=== PATIENT | male | born 1985 | race Hispanic/Latino ===

== ENCOUNTER 2024-03-14 06:25 | Emergency (ER) | payer SELFPAY ==
--- OUTSIDE RECORDS SUMMARY | 2024-03-14 06:27 | XMS REPORT | Continuity of Care Document ---
Author Name Unknown Address [address] [place] [address] [address] [facility] Address [address] [facility] 1 [address] [place] [address] Care Team Providers Care Adjunct Psychology Faculty Member Name Role Phone Morris Lr Attending Clinician UnavailDanielle Rendon Attending Clinician Unavailable Gabrielle Singh Attending Clinician Unavailable Cesar Wahl Attending Clinician Unamary rice Physician, No Primary or Family Admitting Clinic [place] Unavailable Payers Payer Name Policy Type Policy Number Effective Date Expirati on Date Source Allergies, Adverse Reactions, Alerts Allergy Name Allergy Type Status Severity Reaction(s) Onset Date Inactive Date Treating Clinician Comments Source No Known Allergie s DA Active U 12-19 00:00: 00 [facility] No Known Allergie s DA Active U 12-19 00:00: 00 [facility] Encounters Start Date/Time End Date/Time Encounter Type Admission Type Attending Clinicians Care Facility Care Department Encounter ID Source 2020-12-19 00:50:00 Inpatient [facility] ER [id number] [facility] 2024-01-02 21:35:00 2024-01-02 22:44:00 Emergency EM Morris Lr [facility] ER [id number] [facility] 2022-09-08 15:36:00 2022-09-08 17:18:00 Emergency EM Danielle Sam [facility] ER [id number] [facility] 2021-10-27 14:50:00 2021-10-27 17:25:00 Emergency EM Gabrielle Singh [facility] ER [id number] [facility] 2021-10-17 17:46:00 2021-10-17 19:16:00 Emergency EM Cesar Wahl [facility] ER [id number] [facility] Results Test Description Test Time Test Comments Results Result Co mments Source - XR CHEST 1 [id number] 16:40:00 [facility] 1985 Sex: M Patient Name: BRIANNA STRICKLAND Unit No: [id number] EXAMS: CPT CODE: [id number] XR CHEST 1 V 59891 Reason: cough EXAM: - XR CHEST 1 V INDICATION: cough Technique: Frontal view of the chest. Location: H62 FINDINGS: Lungs appear clear. No pleural effusion seen. Cardiomediastinal silhouette appears unremarkable. Osseous structures appear unremarkable. IMPRESSION: No acute cardiopulmonary process seen. Elec tronically Signed by Mauri Stroud MD on 09/08/2022 at 1640 Reported and signed by: Mauri Stroud, [facility]: Tanner MARIE; Danielle Sam DO Technologist: RT Leesa Trscrpt Dt/ (1640)[id number] Orig Print D/T: S: 09/08/2022 (1643) Phil Campbell FSED NAME: BRIANNA STRICKLAND [facility] [address] PHYS: Danielle Goodwin DO [address] : 1985 AGE: 36 SEX: M [place], [place] [address] LOC: D.PER PHONE #: [phone] EXAM DATE: 09/08/2022 STATUS: REG ER FAX#: RAD NO: DC Dt: PAGE 1 Signed ReportLACTIC ACID 2021-10-27 16:28:00* Test Item Value Reference Range Interpretation Comme nts LACTIC ACID (test code = LACT) 0.5 MMOL/L 0.5-2.2 N COMPREHENSIVE METABOLIC [id number] 16:04:00* Test Item Value Reference Range Interpretation Comme nts SODIUM (test code = NA) 137 MMOL/L 133-145 N POTASSIUM (test code = K) 4.0 MMOL/L 3.6-5.2 N CHLORIDE (test code = CL) 99 MMOL/L 100-108 L CARBON DIOXIDE (test code = CO2) 27 MMOL/L 22-32 N GLUCOSE (test code = GLU) 119 MG/DL 65-99 H Results of this assay method may be falsely depressed orelevated if patient is taking sulfasalazine. BLOOD UREA NITROGEN (test code = BUN) 13 MG/DL 6-20 N GLOMERULAR FILTRATION RATE (test code = GFR) 71 70-162 N Reporting units: mL/min/1.73m\\S\\2 (Modified MDRD Formula) CREATININE (test code = CREAT) 1.17 MG/DL 0.60-1.00 H TOTAL PROTEIN (test code = PROT) 8.1 G/DL 6.4-8.2 N ALBUMIN (test code = ALB) 3.3 G/DL 3.4-5.0 L GLOBULIN (test code = GLOB) 4.8 G/DL 1.5-3.8 H ALBUMIN/GLOBULIN RATIO (test code = A/G) 0.7 1.1-2.2 L CALCIUM (test code = CA) 9.0 MG/DL 8.7-10.5 N BILIRUBIN TOTAL (test code = BILT) 0.7 MG/DL 0.0-1.0 N SGOT/AST (test code = AST) 17 Units/L 15-37 N Results of this assay method may be falsely depressed orelevated if patient is taking sulfasalazine. SGPT/ALT (test code = ALT) 25 Units/L 30-65 L Results of this assay method may be falsely depressed orelevated if patient is taking sulfasalazine. ALKALINE PHOSPHATASE TOTAL (test code = ALKP) 89 Units/L 50-136 N [id number] 16:04:00* Test Item Value Reference Range Interpretation Comme nts LIPASE (test code = LIP) 79 Units/L 73-393 N TROP-I HIGH [id number] 16:04:00* Test Item Value Reference Range Interpretation Comme nts TROP-I HIGH SENSITIVITY (test code = TROPIHS) 4 ng/L < 76 This is a new test. A transition from TropI to TropIHS. The normal ranges and reporting units have changed. Pleasereview results carefully. - The use of serial sampling and testing protocol is a recommended practice.- An elevated troponin level alone is often not sufficient for diagnosis of myocardial infarction.Results of this assay method may be falsely depressed orelevated if patient is taking high doses of Biotin. Coronavirus 2019 nCoV [id number] 16:04:00* Test Item Value Reference Range Interpretation Comme [facility] Coronavirus 2019 nCoV Bedside (test code = [id number]) Negative Negative ID NOW COVID-19 assay performed on the ID NOW Instrument paulino rapid molecular in vitro diagnostic test utilizing anisothermal nucleic acid amplification technology intendedfor the qualitative detection of nucleic acid from fqbSNNX-ElD-0 viral RNA in direct nasal, nasopharyngeal orthroat swabs and nasal, nasopharyngeal or throat swabseluted in viral transport media from individuals who aresuspected of COVID-19 by their healthcare provider. Negative results should be treated as presumptive and, ifinconsistent with clinical signs and symptoms or necessaryfor patient management, should be tested with differentauthorized or cleared molecular tests. Negative results donot preclude SARS-CoV-2 infection and should not be used asthe sole basis for patient management decisions. Negativeresults should be considered in the context of a patient'srecent exposures, history and presence of clinical signs andsymptoms consistent with COVID-19.Results are for the identification of SARS-CoV-2 RNA.For Use Under an Emergency Use Authorization (EUA) Only Negative results do not preclude SARS-CoV-2 infection andshould not be used as the sole basis for patient managementdecisions. Negative results must be combined with clinicalobservations, patient history, and epidemiologicalinformation . CBC W/AUTO [id number] 16:03:00* Test Item Value Reference Range Interpretation Comme nts WHITE BLOOD CELL (test code = WBC) 15.01 x10 3/uL 4.80-10.80 H Results called to and read back by PERRY BRAVO, [id number], 10/27/21, GlennaLAB.MCM. RED BLOOD CELL (test code = RBC) 5.19 x10 6/uL 4.7-6.1 N HEMOGLOBIN (test code = HGB) 16.4 G/DL 14.0-17.0 N HEMATOCRIT (test code = HCT) 47.8 % 42-52 N MEAN CELL VOLUME (test code = MCV) 92.1 FL 80-94 N MEAN CELL HGB (test code = MCH) 31.6 PG 27-31 H MEAN CELL HGB CONCENTRATION (test code = MCHC) 34.3 G/DL 33-37 N RED CELL DISTRIBUTION WIDTH (test code = RDW) 12.5 % 11.5-14.5 N PLATELET COUNT (test code = PLT) 289 x10 3/uL 150-450 N MEAN PLATELET VOLUME (test code = MPV) 10.5 FL 7.4-10.4 H NEUTROPHIL % (test code = NT%) 78.5 % 42-86 N LYMPHOCYTE % (test code = LY%) 9.7 % 24-44 L MONOCYTE % (test code = MO%) 11.2 % 0.0-4.0 H EOSINOPHIL % (test code = EO%) 0.5 % 0.0-2.7 N BASOPHIL % (test code = BA%) 0.1 % 0.0-0.5 N NEUTROPHIL # (test code = NT#) 11.79 x10 3/uL 1.8-7.7 H LYMPHOCYTE # (test code = LY#) 1.45 x10 3/uL 1.0-4.8 N MONOCYTE # (test code = MO#) 1.68 x10 3/uL 0.0-0.8 H EOSINOPHIL # (test code = EO#) 0.07 x10 3/uL 0.0-0.5 N BASOPHIL # (test code = BA#) 0.02 x10 3/uL 0.0-0.2 N MANUAL DIFF REQUIRED (test code = MDIFF) AUTODIFF VERIFIED TECH REVIEW Auto Differential verified by tech review of smear. - XR CHEST 1 [id number] 15:16:00 [facility] 1985 Sex: M Patient Name: BRIANNA STRICKLAND Unit No: [id number] EXAMS: CPT CODE: [id number] XR CHEST 1 V 83121 Reason: cough, short of breath - XR CHEST 1 V INDICATION:Cough and shortness of breath LOCATION: T18 The lungs are clear. The cardiomediastinal silhouette is within normal limits. The bony thorax is unremarkable. IMPRESSION: No active disease. at 1516 Reported and signed by: Skip Sandhu MD CC: Gabrielle Singh MD Technologist: RT Leesa Trscrpt Dt/ (1516)[email or web address].[email or web address] Orig Print D/T: S: 10/27/2021 (6558) Phil Campbell FSED NAME: BRIANNA STRICKLAND [address] [place] [address] PHYS: Gabrielle Austin MD [address] : 1985 AGE: 35 SEX: M [place], [place] [address] LOC: D.PER PHONE #: [phone] EXAM DATE: 10/27/2021 STATUS: REG ER FAX #: RAD NO: DC Dt: PAGE 1 Signed Report- XR CHEST 1 [id number] 18:46:00 [facility] 1985 Sex: M Patient Name: BRIANNA STRICKLAND Unit No: [id number] EXAMS: CPT CODE: [id number] XR CHEST 1 V 56244 Reason: cough Location code: H5 Chest 1 view Indication: cough. Comparison: None Findings: The heart and mediastinum are not remarkable. Costophrenic angles are clear. Lungs are clear. Bone is unremarkable for age. Impression: 1. No radiographic evidence of acute cardiopulmonary disease. at 1846 Reported and signed by: George Romero MD CC: Cesar Cortes MD Technologist: Yifan Rodgers CT Trscrpt Dt/ (1845)[email or web address] Orig Print D/T: S: 10/17/2021 (184) Phil Campbell FSED NAME: BRIANNA STRICKLAND [facility] [address] PHYS: LINDA - Cesar Wahl [address] : 1985 AGE: 35 SEX: M [place], [place] [address] LOC: D.PER PHONE #: [phone] EXAM DATE: 10/17/2021 STATUS: REG ER FAX #: RAD NO: DC Dt: PAGE 1 Signed ReportDRUG OF ABUSE SCREEN URINE 2020-12-19 02:00:00* Test Item Value Reference Range Interpretation Comments UR COCAINE (test code = COCAU) NEGATIVE NEGATIVE UR MDMA (test code = MDMAQLU) NEGATIVE NEGATIVE UR CANNABINOIDS (test code = CANU) NEGATIVE NEGATIVE UR AMPHETAMINE (test code = AMPHU) NEGATIVE NEGATIVE UR BARBITURATE QUAL (test code = BARBQLU) NEGATIVE NEGATIVE UR BENZODIAZEPINE (test code = BENZU) NEGATIVE NEGATIVE UR OPIATES QUAL (test code = OPIAQLU) POSITIVE NEGATIVE A If confirmatory testing required, contact laboratory. UR PHENCYCLIDINE (PCP) (test code = PHENCU) NEGATIVE NEGATIVE Urine Drug Abuse Screen provides preliminary results thatmay be confirmed by alternate methods (i.e., GC/MS) at [facility]. Results of screen may not be usedin criminal justice, job performance or professionalcredential review, or custody issues. Negative Guys Level ng/ml ----- Cocaine 300 Methamphetamine (Ecstacy) 500 Cannabinoids (THC) 50 Amphetamine 1000 Barbiturates 200 Benzodiazepines 200 Opiates 300 Phencyclidine (PCP) 25 Notes Date/Time Note Provider Source 2024-01-02 22:22:00 [id number] PIkMFIhf4AJJPfJfDSspku7tir+2249-53-46T70:22:00 [facility] PROVID[facility] REPORTREPORT#:[id number] REPORT STATUS: SignedDATE:01/02/24 TIME: 2221 PATIENT: BRIANNA STRICKLAND UNIT #: [id number]#: [id number] ROOM/BED:AGE: 38 SEX: M PCP PHYS: No Primary or Family PhysicianSERVICE DT: AUTHOR: Morris Lr MD * ALL edits or amendments must be made on the electronic/computer document * HPI-General Illness GeneralInitial Greet Date/Time 01/02/242144 PresentationChief Complaint Tooth pain Free Text HPI NotesFree Text HPI NotesThe patient presents with atraumatic left lower tooth pain, onset today, steadily worsening and quite severe. He has an appoint with a dentist tomorrow. No fever. He is generally in good health with no chronic medical problems. Review of Systems ROS StatementsAll systems rev neg except as marked. Past Medical History - AdultStated Complaint TOOTHACHEAllergiesCoded Allergies:No Known Allergies (12/19/20) Home MedicationsActive ScriptsPENICILLIN V-K (PEN V-K) 500 MG PO Q6H 7 Days #28 TABS Prov: 12/19/20NAPROXEN (NAPROSYN) 500 MG PO BID PRN PRN PAIN NAPROXEN (NAPROSYN) 500 MG PO BID PRN PRN PAIN #15 TABS Prov: 12/19/20BENZONATATE (TESSALON) 100 MG PO Q8H PRN PRN COUGH 5 Days #30 CAPS Prov: 10/27/21hydrOXYzine PAMOATE (VISTARIL) 25 MG PO QID PRN PRN anxiety 5 Days #20 CAPS Prov: 10/27/21ACETAMINOPHEN (TYLENOL) 500 MG PO Q6H PRN PRN fever ACETAMINOPHEN (TYLENOL) 500 MG PO Q6H PRN PRN fever #20 TABS Prov: 10/17/21IBUPROFEN (ADVIL) 400 MG PO Q6H 5 Days #20 TABS Prov: 10/17/21OSELTAMIVIR (TAMIFLU) 75 MG PO BID OSELTAMIVIR (TAMIFLU) 75 MG PO BID #10 CAPS Prov: 10/17/21 Calculated Suicide Risk (nurs) No riskAlcohol Use Alcohol useDrug Use Denies recreational drugsSmoking status for patients 13 years old or older: Never Smoker Physical Exam Vital SignsVital SignsFirst Documented: Result Date Time Pulse Ox 97 01/02 2140 B/P 159/113 01/02 2140 B/P Mean 128 01/02 2140 O2 Delivery Room air 01/02 2140 Temp 98.5 01/02 2140 Pulse 79 01/02 2140 Resp 16 01/020 Last Documented: Result Date Time Pulse Ox 97 01/02 2140 B/P 159/113 01/02 2140 B/P Mean 128 01/02 2140 O2 Delivery Room air 01/02 2140 Temp 98.5 01/02 2140 Pulse 79 01/02 2140 Resp 16 01/020 Review of Vital Signs Reviewed Free Text PE NotesFree Text PE NotesGeneral: Awake, alert, appropriate, interactive. Uncomfortable, appears to be in pain.Eyes: Conjunctiva are clear. Corneas appear normal. EOMI.ENT: Face, head, external nose, and ears are normal-appearing. The oropharynx has a left lower tooth fracture with exposed pulp. No redness or swelling. Theuvula is midline. The posterior pharyngeal elements are symmetric. Voice is normal.Neck: The neck is nontender and supple with normal range of motion.Back: The back appears normal with full range of motion.Respiratory: The respiratory effort is normal. The lungs are clear to auscultation.Cardiovascular: Heart sounds are normal. No murmur or rub. The rate is normal. The rhythm is normal. Peripheral pulses are normal and equal bilaterally. No edema is present. Capillary refill is less than 3 seconds.GI: The abdomen is soft, nondistended, without mass. There is no tenderness to palpation. No rebound or guarding. Bowel sounds are normal. The liver and spleen are nonpalpable.Musculoskeletal: Range of motion of all joints appears normal without pain or tenderness.Skin: There is no rash.Neurologic: No focal deficits are noted. Re-Evaluation MDM Free Text MDM NotesFree Text MDM NotesHe will follow-up with a dentist as scheduled. ED CourseMedication(s) OrderedMedication(s) Ordered:Central Nervous System Agents Sig/Farhan Start time Last Medication Dose Route Stop Time Status Admin Hydrocodone Bitart/ 1 TAB X1ED STA 01/02 2216 DC 01/02 Acetaminophen PO 01/02 Ketorolac 60 MG X1ED STA 01/02 2216 DC 01/02 Tromethamine IM 01/02 Patient Discharge Departure Vital Signs/ConditionVital SignsFirst Documented: Result Date Time Pulse Ox 97 01/02 2140 B/P 159/113 01/02 2140 B/P Mean 128 01/02 2140 O2 Delivery Room air 01/02 2140 Temp 98.5 01/02 2140 Pulse 79 01/02 2140 Resp 16 01/020 Last Documented: Result Date Time Pulse Ox 97 01/02 2140 B/P 159/113 01/02 2140 B/P Mean 128 01/02 2140 O2 Delivery Room air 01/020 Temp 98.5 01/02 2140 Pulse 79 01/02 2140 Resp 16 01/020 All vital signs available at the time of this entry have been reviewed. Condition Stable Clinical ImpressionClinical ImpressionPrimary Impression: Pain, dental Disposition DecisionDischarge )( Discharged to Home Yes )( Time 224 )( Date 01/02/24 Discharge/Care PlanCounseled Regarding Diagnosis, Prescriptions, Need for follow-up, When to returnto ED(Auto) PrescriptionsCurrent Visit ScriptsPENICILLIN V-K (PEN V-K) 500 MG PO TID 7 Days #21 TABS ACETAMINOPHEN/CODEINE (TYLENOL WITH CODEINE #3 300/30 MG) 1-2 TAB PO Q6H PRN PRNACUTE PAIN ACETAMINOPHEN/CODEINE (TYLENOL WITH CODEINE #3 300/30 MG) 1-2 TAB PO Q6H PRN PRN ACUTE PAIN #15 TABS Patient Instructions ED Dental PainAdditional InstructionsFollow-up with your dentist tomorrow as scheduled. at 2243RPT #:[id number] OF REPORTEDEmerchi st. vincent hospitalcy department [id number]:22:00D.[id number] ilable for patient [id number]:43:40 [facility] 2022-09-08 15:50:00 [id number] W+Mk20zowLgCE1Zid15mv0+Will/cheng t/dHDVWa/gGIwVpmukQc9OEmWmZ6288-68-30W99:50:00 [facility] PROVID[facility] REPORTREPORT#:[id number] REPORT STATUS: SignedDATE:09/08/22 TIME: 1550 PATIENT: BRIANNA STRICKLAND UNIT #: [id number]#: [id number] ROOM/BED:AGE: 36 SEX: M PCP PHYS: No Primary or Family PhysicianSERVICE AUTHOR: Tanner Schuler * ALL edits or amendments must be made on the electronic/computer document * Tanner Schuler 09/08/22 1550:HPI-URI/Cough/Cold Free Text HPI NotesFree Text HPI Ubeeq60-kmpr-ebu male who reports no chronic medical history complains of URI-like symptoms for 1 day. He complains of a cough, congestion, fever, body aches, andchills. He denies chest pain, headache, blurred vision, nausea/vomiting, changes in his bowel/bladder movements, or any other symptoms. GeneralConfirmed Patient YesInitial Greet Date/Time 09/08/22 153 PresentationChief Complaint Upper resp infection Review of Systems ROS StatementsAll systems rev neg except as marked. Focused Review of SystemsConstitutionalReports: Chills, Fever, Weakness - generalized. Ears/Nose/ThroatReports: Nasal congestion, Sore throat. RespiratoryReports: Cough, productive. Denies: Shortness of breath, Wheezing. GIDenies: Abdominal pain, Constipation, Diarrhea, Nausea, Vomiting. Past Medical History - AdultStated Complaint RUNNY NOSE COUGHAllergiesCoded Allergies:No Known Allergies (12/19/20) Home MedicationsActive ScriptsPENICILLIN V-K (PEN V-K) 500 MG PO Q6H 7 Days #28 TABS Prov: 12/19/20NAPROXEN (NAPROSYN) 500 MG PO BID PRN PRN PAIN NAPROXEN (NAPROSYN) 500 MG PO BID PRN PRN PAIN #15 TABS Prov: 12/19/20BENZONATATE (TESSALON) 100 MG PO Q8H PRN PRN COUGH 5 Days #30 CAPS Prov: 10/27/21hydrOXYzine PAMOATE (VISTARIL) 25 MG PO QID PRN PRN anxiety 5 Days #20 CAPS Prov: 10/27/21ACETAMINOPHEN (TYLENOL) 500 MG PO Q6H PRN PRN fever ACETAMINOPHEN (TYLENOL) 500 MG PO Q6H PRN PRN fever #20 TABS Prov: 10/17/21IBUPROFEN (ADVIL) 400 MG PO Q6H 5 Days #20 TABS Prov: 10/17/21OSELTAMIVIR (TAMIFLU) 75 MG PO BID OSELTAMIVIR (TAMIFLU) 75 MG PO BID #10 CAPS Prov: 10/17/21 Alcohol Use Alcohol useDrug Use Denies recreational drugs Physical Exam Vital SignsVital SignsFirst Documented: Result Date Time Pulse Ox 98 09/08 1553 B/P 133/76 09/08 155 B/P Mean 95 09/08 155 O2 Delivery Room air 09/08 1553 Temp 98.4 09/08 1553 Pulse 90 09/08 155 Resp 16 09/08 1553 Last Documented: Result Date Time Pulse Ox 98 09/08 1553 B/P 133/76 09/08 1553 B/P Mean 95 09/08 1553 O2 Delivery Room air 09/08 1553 Temp 98.4 09/08 1553 Pulse 90 09/08 1553 Resp 16 09/08 1553 Review of Vital Signs Reviewed Focused PEGeneral/Const General/Const Awake, Alert, CooperativeEars/Nose/Throat Ears/Nose/Throat Airway patent, Mucous membranes moist, Pharynx NL, Tympanic membs NL, Ext aud canal NL, Mastoid area NL, Nose exam NL, No sinus tenderness, No facial swelling, Gums/dentition NLMS Neck Neck Supple, No meningismus, Full range of motion, No adenopathy, No swelling, Non-tender, No midline vertebral tendResp/Chest Respiratory/Chest Breath sounds NL, Breath sounds = bilat, No respiratory distress, No wheezing, No retractionsCardiovascular Cardiovascular Heart rate NL, Regular rhythm, Heart sounds NL, Cap refill notdelayed, Peripheral circulation NLAbdomen/GI Abdomen/GI Soft, Non-tender, No guarding, No reboundSkin Skin Color NL, Warm, DryNeurologic Neurologic Oriented X3, Speech NL, Memory NL Interpretation Diagnostics Lab Results InterpretationResultsLaboratory Tests: 09/08 1556 Serology SARS-CoV-2 Ag (Rapid) (Negative) NEGATIVE Microbiology: Date/Time Procedure - Status Source Growth 09/08 1556 Group A Streptococcus Screen (SHERRY) - RES THROAT 09/08 1556 Throat Culture - RES THROAT 09/08 1556 Influenza Virus Type B Antigen - COMP NASOPHARG 09/08 1556 Influenza Virus Type A Antigen - COMP NASOPHARG Recent Impressions:RADIOLOGY - XR CHEST 1 V 09/08 1600 Report Impression - Status: SIGNED Entered: 09/08/2022 1643 IMPRESSION:No acute cardiopulmonary process seen.Impression By: [id number] - Mauri Stroud MD Lab Imaging StatementLaboratory radiographic studies reviewed and considered in the medical decision-making. Re-Evaluation MDM Re-Evaluation/ProgressRe-Evaluation/Progress Re-Eval Status Unchanged URI/Flu Adult MDM NoteThe patient is now resting comfortably, is alert and in no distress. The patienthas a normal mental status and is neurologically intact. The patient appears well and is able to tolerate food or fluid by mouth, and there is no significantdehydration. There is no respiratory distress and no signs of systemic toxicity.The history, exam, diagnostic testing and current condition do not demonstrate an infectious process such as meningitis, severe pneumonia, retropharyngeal abscess, epiglottitis, sepsis or other serious bacterial infection requiring further testing, treatment, consultation, or admission at this time. The vital signs have been stable. The patient's condition is stable and appropriate for discharge. The patient will pursue further outpatient evaluation with the primary care physician or other designated or consulting physician as indicated in the discharge instructions. Patient Discharge Departure Vital Signs/ConditionVital SignsFirst Documented: Result Date Time Pulse Ox 98 09/08 1553 B/P 133/76 09/08 1553 B/P Mean 95 09/08 155 O2 Delivery Room air 09/08 1553 Temp 98.4 09/08 155 Pulse 90 09/08 155 Resp 16 09/08 1553 Last Documented: Result Date Time Pulse Ox 98 09/08 1553 B/P 133/76 09/08 1553 B/P Mean 95 09/08 155 O2 Delivery Room air 09/08 155 Temp 98.4 09/08 155 Pulse 90 09/08 155 Resp 16 09/08 1553 All vital signs available at the time of this entry have been reviewed. Condition Stable Clinical ImpressionClinical ImpressionPrimary Impression: URI (upper respiratory infection) Disposition DecisionDischarge )( Discharged to Home Yes )( Time 1650 )( Date 09/08/22 Discharge/Care PlanCounseled Regarding Diagnosis, Lab results, Imaging studies, Need for follow-up,When to return to EDPatient Instructions ED URI, Viral, No Abx (Adult) Discharge NoteI have spoken with the patient and/or caregivers. I have explained the patient'scondition, diagnoses and treatment plan based on the information available to meat this time. I have answered the patient's and/or caregiver's questions and addressed any concerns. The patient and/or caregivers have as good an understanding of the patient's diagnosis, condition and treatment plan as can beexpected at this point. The vital signs have been stable. The patient's condition is stable and appropriate for discharge from the emergency department. The patient will pursue further outpatient evaluation with the primary care physician or other designated or consulting physician as outlined in the discharge instructions. The patient and/or caregivers are agreeable to this planof care and follow-up instructions have been explained in detail. The patient and/or caregivers have received these instructions in written format and have expressed an understanding of the discharge instructions. The patient and/or caregivers are aware that any significant change in condition or worsening of symptoms should prompt an immediate return to this or the closest emergency department or a call to 911. Danielle Sam 09/10/22 0343:Patient Discharge Departure Discharge/Care PlanReferralsProvider Group: PRIMARY CARE Follow-Up: As Needed Supervising Physician Note MidLv Saw Pt AloneI was available for consultation as needed at all times during the patient's visit in the emergency department. I was not asked to see this patient. at 1706 at 0344RPT #:[id number] OF REPORTEDEmerde queen medical center department [id number]:50:00D.[id number] ilable for patient [id number]:06:57 [facility] 2021-10-27 15:12:00 [id number] u[id number]:12:02920 8-0058 [place], [place] PATIENT NAME: BRIANNA STRICKLAND ADMIT DATE: 10/27/21ACCOUNT NO: [id number] ROOM NO: AGE: 35 REPORT TYPE: ELECTROCARDIOGRAM SEX: M : 85ADMITTING PHYSICIAN: ATTENDING PHYSICIAN:Gabrielle Singh MD Order:[id number] Reason : SEPSIS Test Date/Time Stamp:WedOct 27 2021 15:12:54Blood Pressure : / mmHGVent. Rate : 108 BPM Atrial Rate : 108 BPM P-R Int : 132 ms QRS Dur : 094 ms QT Int : 338 ms P-R-T Axes : 031 -70 041 degrees QTc Int : 452 ms Sinus tachycardiaIncomplete right bundle branch blockLeft anterior fascicular blockAbnormal ECG Confirmed by GABRIELLE SINGH ([id number]), social media editor BERTHA FARIAS ([id number]) on11/22/2021 12:48:09 PM Referred By: Self Referred Confirmed by:GABRIELLE SINGH at 1248 PATIENT NAME: BRIANNA STRICKLAND .[id number] AVAvailable for patient [id number]:48:51 [facility] 2021-10-27 14:59:00 [id number] [id number]-33A34:59:00 [facility] PROVIDER REPORTREPORT#:[id number] REPORT STATUS: SignedDATE:10/27/21 TIME: 1459 PATIENT: BRIANNA STRICKLAND UNIT #: [id number]#: [id number] ROOM/BED:AGE: 35 SEX: M PCP PHYS: No Primary or Family PhysicianSERVICE AUTHOR: Gabrielle Singh MD * ALL edits or amendments must be made on the electronic/computer document * HPI-General Illness Free Text HPI NotesFree Text HPI Notes HPI:35-year-old male with past medical history of asthma, anxiety here with shortness of breath chest tightness and cough for the past several days. Patient states he was recently diagnosed with influenza. Denies fever but has body aches and chills and sweatiness. No abdominal pain nausea vomiting diarrhea dysuria congestion sore throat headache. Patient has been taking NyQuil at home. No other known sick contacts. Patient's girlfriend reportedly had called EMS who evaluated him however he declined transport. Onset/Timing: Several daysContext: No known sick contactProvocation/Modifying factors: Nothing in particularQuality: TightnessRadiation: ChestSeverity: ModerateAssociated symptoms: Cough shortness of breath PMH: AsthmaPSH: DeniesSHx: Smokes tobaccoMeds: NyQuilAllergies: No known drug allergies Home medications reviewed. [facility] Greet Date/Time 10/27/21 1455 PresentationChief Complaint Cough, Shortness of breath Review of Systems ROS StatementsAll systems rev neg except as marked. Free Text ROS NotesFree Text ROS Notes ROS: Constitutional: Patient denies recent illness, fever, weaknessEyes: Patient denies problems with visionENT: Patient denies sore throat, congestionMusculoskeletal: Patient denies neck, back, extremity painPulm: cough, shortness of breathChest: chest painHeme/Lymph: Patient denies palpable lymph nodes or anemia/easy bruisingGI: Patient denies abdominal pain, nausea, vomiting, diarrheaGU: Patient denies dysuria or blood in the urineSkin: Patient denies rashNeuro: Patient denies headache, dizzinessPsych: anxiety Past Medical History - AdultStated Complaint CAN'T BREATHEAllergiesCoded Allergies:No Known Allergies (12/19/20) Home MedicationsActive ScriptsPENICILLIN V-K (PEN V-K) 500 MG PO Q6H 7 Days #28 TABS Prov: 12/19/20NAPROXEN (NAPROSYN) 500 MG PO BID PRN PRN PAIN NAPROXEN (NAPROSYN) 500 MG PO BID PRN PRN PAIN #15 TABS Prov: 12/19/20ACETAMINOPHEN (TYLENOL) 500 MG PO Q6H PRN PRN fever ACETAMINOPHEN (TYLENOL) 500 MG PO Q6H PRN PRN fever #20 TABS Prov: 10/17/21IBUPROFEN (ADVIL) 400 MG PO Q6H 5 Days #20 TABS Prov: 10/17/21OSELTAMIVIR (TAMIFLU) 75 MG PO BID OSELTAMIVIR (TAMIFLU) 75 MG PO BID #10 CAPS Prov: 10/17/21 Free Text PMH Notes ROS: Constitutional: body aches, chillsEyes: Patient denies problems with visionENT: Patient denies sore throat, congestionMusculoskeletal: Patient denies neck, back, extremity painPulm: cough, shortness of breathChest: chest tightnessGI: Patient denies abdominal pain, nausea, vomiting, diarrheaGU: Patient denies dysuria or blood in the urineSkin: Patient denies rashNeuro: Patient denies headache, dizziness Physical Exam Vital SignsVital SignsFirst Documented: Result Date Time Pulse Ox 94 10/27 1454 B/P 122/78 10/27 1454 B/P Mean 92 10/27 1454 O2 Delivery Room air 10/27 1454 Temp 99.0 10/27 1454 Pulse 115 10/27 1454 Resp 30 10/27 1454 Last Documented: Result Date Time Pulse Ox 96 10/27 1645 B/P 126/83 10/27 1645 B/P Mean 97 10/27 1645 O2 Delivery Room air 10/27 1645 Pulse 116 10/27 1645 Resp 25 10/27 1645 Temp 99.0 10/27 1454 Review of Vital Signs Reviewed Free Text PE NotesFree Text PE Notes Physical Exam: General: No acute distress, appears stated age, appears anxious, sweatyHEENT: Normocephalic, atraumaticNeck: Trachea is midline, neck supple, normal range of motionRespiratory: No respiratory distress, Breath sounds are present bilaterally, no wheezes, rales or rhonchi, has coughCardiovascular: Regular rate and rhythm, distal pulses intact, no edemaNeuro: patient able to move all extremities, no focal neuro deficitsPsych: very anxiousAbdomen: Abdomen is soft, nontender, nondistended, no guarding or reboundExtremities: Moving all extremities, distal pulses intact, no gross deformitySkin: No rashes, abrasions, lacerations Interpretation Diagnostics Lab Results InterpretationResultsLaboratory Tests 10/27/21 1521:[Embedded Image Not Available]Laboratory Tests: 10/27 10/27 1521 1521 Chemistry Sodium (133 - 145 MMOL/L) 137 Potassium (3.6 - 5.2 MMOL/L) 4.0 Chloride (100 - 108 MMOL/L) 99 L Carbon Dioxide (22 - 32 MMOL/L) 27 BUN (6 - 20 MG/DL) 13 Creatinine (0.60 - 1.00 MG/DL) 1.17 H Estimated GFR (MDRD) (70 - 162) 71 Glucose (65 - 99 MG/DL) 119 H Lactic Acid (0.5 - 2.2 MMOL/L) 0.5 Calcium (8.7 - 10.5 MG/DL) 9.0 Total Bilirubin (0.0 - 1.0 MG/DL) 0.7 AST (15 - 37 Units/L) 17 ALT (30 - 65 Units/L) 25 L Alkaline Phosphatase (50 - 136 Units/L) 89 Troponin I High Sens (< 76 ng/L) 4 Total Protein (6.4 - 8.2 G/DL) 8.1 Albumin (3.4 - 5.0 G/DL) 3.3 L Globulin (1.5 - 3.8 G/DL) 4.8 H Albumin/Globulin Ratio (1.1 - 2.2) 0.7 L Lipase (73 - 393 Units/L) 79 Hematology WBC (4.80 - 10.80 x10 3/uL) 15.01 H RBC (4.7 - 6.1 x10 6/uL) 5.19 Hgb (14.0 - 17.0 G/DL) 16.4 Hct (42 - 52 %) 47.8 MCV (80 - 94 FL) 92.1 MCH (27 - 31 PG) 31.6 H MCHC (33 - 37 G/DL) 34.3 RDW Coeff of Khari (11.5 - 14.5 %) 12.5 Plt Count (150 - 450 x10 3/uL) 289 MPV (7.4 - 10.4 FL) 10.5 H Neut % (Auto) (42 - 86 %) 78.5 Lymph % (Auto) (24 - 44 %) 9.7 L [place] % (Auto) (0.0 - 4.0 %) 11.2 H Eos % (Auto) (0.0 - 2.7 %) 0.5 Baso % (Auto) (0.0 - 0.5 %) 0.1 Eos # (Auto) (0.0 - 0.5 x10 3/uL) 0.07 Baso # (Auto) (0.0 - 0.2 x10 3/uL) 0.02 Absolute Neuts (auto) (1.8 - 7.7 x10 3/uL) 11.79 H Absolute Lymphs (auto) (1.0 - 4.8 x10 3/uL) 1.45 Absolute Monos (auto) (0.0 - 0.8 x10 3/uL) 1.68 H Add Manual Diff (TECH REVIEW) AUTODIFF VERIFIED Serology SARS CoV-2 RNA Rapid JOSE (Negative) Negative Microbiology: Date/Time Procedure - Status Source Growth 10/27 1531 Blood Culture - RECD BLOOD 10/27 1521 Influenza Virus Type B Antigen - COMP NASOPHARG 10/27 1521 Influenza Virus Type A Antigen - COMP NASOPHARG 10/27 1521 Blood Culture - RECD BLOOD Recent Impressions:RADIOLOGY - XR CHEST 1 V 10/27 1500 Report Impression - Status: SIGNED Entered: 10/27/2021 1519 IMPRESSION: No active disease.Impression By: Beryl - Skip Sandhu MD Lab Imaging StatementLaboratory radiographic studies reviewed and considered in the medical decision-making. ECG #1 InterpretationText/Dict [id number] 108sinus tachycardialeft axisiRBBBlafbno stemi Re-Evaluation MDM Free Text MDM NotesFree Text MDM [id number] with h/o anxiety and asthma here for cough for several days now with shortness of breath. he is alert oriented an appears anxious mildly tachycardic saturating normlaly on room air. he is beating his chest and is anxious. normal lung sounds but will tx with duoneb given pt's cough and h/o asthma. this helpedthe patient feel better. given anxiety he was given ativan as well. iv fluids given as well. covid/flu negative (pt actually did not have covid and flu test done last er visit). cxr without pneumonia. patient did not want to wait for additional ativan or reevaluation or improvement of heart rate. pt wanted to go home so he was discharged. Additional Textpt seen walking comfortably in the ED along with sitting comfortably in no distress on the stretcher talking on the phone 1628 pt kneeling at the side of the bed receiving nebulizer treatment, heard cursing at someone on the phone 1700 Pt states he felt better after duoneb but he is still feeling anxious, HR down to 109, satting 96% ED CourseMedication(s) OrderedMedication(s) Ordered:Anti-Infective Agents Sig/Farhan Start time Last Medication Dose Route Stop Time Status Admin Ceftriaxone Sodium 1,000 MG X1ED STA 10/27 1504 AC 10/27 Sodium Chloride 10 ML IV 10/28 0103 1600 Autonomic Drugs Sig/Farhan Start time Last Medication Dose Route Stop Time Status Admin Albuterol Sulfate 3 ML X1ED STA 10/27 1456 DCr 10/27 NEB 10/27 1457 1618 Central Nervous System Agents Sig/Farhan Start time Last Medication Dose Route Stop Time Status Admin Lorazepam 1 MG X1ED STA 10/27 1707 DC IV 10/27 1708 Lorazepam 0.5 MG X1ED STA 10/27 1647 CANr IV 10/27 1648 Acetaminophen 1,000 MG X1ED STA 10/27 1608 DC 10/27 PO 10/27 1609 1618 Lorazepam 1 MG X1ED STA 10/27 1608 DC / PO 10/27 1609 1617 Electrolytic, Caloric, And Valentino Sig/Farhan Start time Last Medication Dose Route Stop Time Status Admin Sodium Chloride 1,000 ML BOLUS 10/27 1505 AC 10/27 IV 12/26 1506 1559 Eye, Ear, Nose And Throat (Een Sig/Farhan Start time Last Medication Dose Route Stop Time Status Admin Ipratropium [place] 2.5 ML X1ED STA 10/27 1456 DCr 10/27 NEB 10/27 1457 1618 Respiratory Tract Agents Sig/Farhan Start time Last Medication Dose Route Stop Time Status Admin Benzonatate 200 MG X1ED STA 10/27 1526 DC 10/27 PO 10/27 1527 1559 Patient Discharge Departure Vital Signs/ConditionVital SignsFirst Documented: Result Date Time Pulse Ox 94 10/27 1454 B/P 122/78 10/27 1454 B/P Mean 92 10/27 1454 O2 Delivery Room air 10/27 1454 Temp 99.0 10/27 1454 Pulse 115 10/27 1454 Resp 30 10/27 1454 Last Documented: Result Date Time Pulse Ox 96 10/27 1645 B/P 126/83 10/27 1645 B/P Mean 97 10/27 1645 O2 Delivery Room air 10/27 1645 Pulse 116 10/27 1645 Resp 25 10/27 1645 Temp 99.0 10/27 1454 All vital signs available at the time of this entry have been reviewed. Condition Stable Clinical ImpressionClinical ImpressionPrimary Impression: CoughSecondary Impressions: Shortness of breath Disposition DecisionDischarge )( Discharged to Home Yes Discharge/Care PlanCounseled Regarding Diagnosis, Lab results, Imaging studies, Prescriptions, Needfor follow-up, When to return to ED(Auto) PrescriptionsCurrent Visit ScriptsBENZONATATE (TESSALON) 100 MG PO Q8H PRN PRN COUGH 5 Days #30 CAPS hydrOXYzine PAMOATE (VISTARIL) 25 MG PO QID PRN PRN anxiety 5 Days #20 CAPS Additional InstructionsFollow up with: primary care doctorWhen: 2-3 day You were seen in the emergency department today for shortness of breath and cough. You had labs, xray done today which did not show life threatening conditions which would require admission to the hospital at this time. Your x-ray did NOT show signs of pneumonia.Flu/covid tests were negative. You were given IV fluids, an antibiotic, and tylenol in the er today.you were also given a breathing treatment. Please continue taking your home medications as directed. You were prescribed tessalon for cough and vistaril for anxiety. Please take asdescribed. Do not operate heavy machinery/drive while taking narcotic medications. If you have received a prescription, please fill it TODAY and follow the instructions carefully. Please follow-up with your primary care physician as soon as you can. Please call tomorrow for an appointment. If you cannot follow-up with your primary caredoctor please return to the ED for any urgent issues. If your symptoms worsen or do not resolve, you experience fever, shortness of breath, chest pain, uncontrolled nausea/vomiting, or develop any new concerning symptoms, please return to the ED immediately. The examination and treatment that you have received has been on an emergency basis only and is not intended as an effort to provide complete medical care. Itis impossible to recognize and treat all elements of an illness or injury in a single ER visit. Thank you for allowing us to provide emergent medical care to you or your familymember. We consider it a privilege to have served you during your illness or injury. ADDITIONAL INSTRUCTIONS: Keep in mind that all X-Rays, CT's, MRI's and Ultrasounds read after hours may be over-read the following day by the staff radiologist. DO NOT DRIVE AFTER TAKING NARCOTICS, SEDATIVES, OR OTHER MEDICATIONS THAT MAY CAUSE SEDATION. RETURN TO THE EMERGENCY DEPARTMENT NEEDED FOR WORSENING SYMPTOMS. THANK YOU FOR CHOOSING US FOR YOUR EMERGENCY NEEDS. YESENIA ELISSA JEMAL CON RIVERS DOCTOR PARA VERLO EN 1 A 2 GRANT. SI EMPEORAN CHRISTINA SINTOMAS REGRESE A LA EMERGENCIA. ANUJA POR ELEGIR NUESTROS PARA RIVERS NECESIDADES DE LA EMERGENCIA. CLINICS:[facility] - [phone] [address] [place], [place] [address]RJJNFWGW [facility] - [phone] [address], [place] [address]UR. KATHLEEN [address] [facility] [address] [place], [place] [id number] [phone] CLINIC: [address], [place] [phone] CLINIC: [id number] (MUST ARRANGE NUECES AIDE FIRST) [phone] [facility]: [id number] ([place]) OPEN EVERY WEDNESDAY - [phone] CLINIC: [address] [facility], [place], [place] [phone] SUBSTANCE ABUSE REHAB/COUNSELINGCenikor [place] ([facility]ly [facility]) [address] [facility])[place], [place] [address]Jwrse number: FINANCIAL ASSISTANCE: IF YOU HAVE NO INSURANCE AND LIVE IN [facility], YOU MAY QUALIFY FOR A [facility] CARE. CALL TO SIGN UP AND/OR CALL FOR A LIST OF REQUIREMENTS. FOR SCHEDULING APPOINTMENTS CALL . IF YOU LIVE IN [facility] AND DO NOT QUALIFY FOR [facility], CONTACT [facility]: [address], [address], [place], [place] [phone] IF YOU LIVE IN [facility] AND HAVE NO INSURANCE, YOU MAY BE ABLE TO BE SEEN AT THE [facility]ALTH DEPARTMENT LOCATED AT [facility] [address] [place] [place]. CALL [phone] TO SEE IF YOU QUALITY AND/OR TO SCHEDULE AN APPOINTMENT. [facility]: [address], [address], [place], [place] [facility]: [address], [address], [place], [place], [place] [facility]: [address] [place], [place]: [address] [place], [place]: [address] [facility], [address], [place], [place] Discharge NoteI have spoken with the patient and/or caregivers. I have explained the patient'scondition, diagnoses and treatment plan based on the information available to meat this time. I have answered the patient's and/or caregiver's questions and addressed any concerns. The patient and/or caregivers have as good an understanding of the patient's diagnosis, condition and treatment plan as can beexpected at this point. The vital signs have been stable. The patient's condition is stable and appropriate for discharge from the emergency department. The patient will pursue further outpatient evaluation with the primary care physician or other designated or consulting physician as outlined in the discharge instructions. The patient and/or caregivers are agreeable to this planof care and follow-up instructions have been explained in detail. The patient and/or caregivers have received these instructions in written format and have expressed an understanding of the discharge instructions. The patient and/or caregivers are aware that any significant change in condition or worsening of symptoms should prompt an immediate return to this or the closest emergency department or a call to 911. at 1723RPT #:[id number] OF REPORTEDEmergency department umlewq0455-74-77S64:59:00D.[id number] ilable for patient luneVSSCVFVRKNVPUX3758-82-97P96:27:24 [facility] 2021-10-17 18:21:00 [id number]/kBNIkH1sJ8wsY5L4sA o+Sa4GeMgAFpMt+iY1XGUaLquai7173-68-32S76:21:00 [facility]OR [facility] PROVIDER REPORTREPORT#:[id number] REPORT STATUS: SignedDATE:10/17/21 TIME: 1820 PATIENT: BRIANNA STRICKLAND UNIT #: [id number]#: [id number] ROOM/BED:AGE: 35 SEX: M PCP PHYS: No Primary or Family PhysicianSERVICE AUTHOR: Cesar Wahl MD * ALL edits or amendments must be made on the electronic/computer document * HPI-URI/Cough/Cold Free Text HPI NotesFree Text HPI Ivbxt49-zocd-kty man with no past medical history presented today complaining of 1 day of cough, hoarseness, fever chills body aches, denies shortness of breath, denies loss of smell denies loss of taste, denies diarrhea, not making feel better for what he consulted today to the emergency department. GeneralConfirmed Patient YesPatient Type New patientInitial Greet Date/Time 10/17/211751 PresentationChief Complaint Cough, non-productive Review of Systems Free Text ROS NotesFree Text ROS NotesConstitutional: Positive for fever, chills and body aches HENT: Negative for ear pain, positive sore throat Eyes: Negative for pain and visual disturbance. Respiratory: Positive for cough, negative chest tightness and negative shortnessof breath. Cardiovascular: Negative for chest pain, palpitations nor leg swelling. Gastrointestinal: Negative for nausea, vomiting, abdominal pain nor diarrhea. Endocrine: Negative for polydipsia nor polyuria. Genitourinary: Negative for dysuria nor hematuria. Musculoskeletal: Negative for back pain, neck pain, nor extremity pain. Skin: Negative for pallor, rash. Neurological: Negative for dizziness, seizures, weakness and headaches. Psychiatric/Behavioral: Negative for behavioral problems, confusion and agitation. No suicidal ideation, no homicidal ideation, no hallucinations, no delusions. Past Medical History - AdultStated Complaint FLU S/SAllergiesCoded Allergies:No Known Allergies (12/19/20) Home MedicationsActive ScriptsPENICILLIN V-K (PEN V-K) 500 MG PO Q6H 7 Days #28 TABS Prov: 12/19/20NAPROXEN (NAPROSYN) 500 MG PO BID PRN PRN PAIN NAPROXEN (NAPROSYN) 500 MG PO BID PRN PRN PAIN #15 TABS Prov: 12/19/20 Alcohol Use Alcohol useDrug Use Denies recreational drugs Physical Exam Vital SignsVital SignsFirst Documented: Result Date Time B/P 120/74 10/17 1813 B/P Mean 89 10/17 1813 Temp 100.9 10/17 1813 Pulse 113 10/17 1813 Last Documented: Result Date Time B/P 120/74 10/17 1813 B/P Mean 89 10/17 1813 Temp 100.9 10/17 1813 Pulse 113 10/17 1813 Review of Vital Signs Reviewed Free Text PE NotesFree Text PE NotesConstitutional: oriented to person, place, and time. appears well-developed and well-nourished. Non toxic appearing. Patient with fever chills not feeling well Head: Normocephalic and atraumatic. ENT: Bilateral Tympanic membranes are normal, non-erythematous. Bilateral Ear canal normal without erythema or pain. Mouth/Throat: Uvula is midline, oropharynx is erythematous and moist and mucous membranes are normal. Eyes: Conjunctivae and EOM are normal. PERRL Neck: Neck supple, no JVD, No Midline tenderness, no meningismus Cardiovascular: Tachycardia, normal heart sounds and normal pulses. No Murmurs, Gallops, Rubs. Pulses: Radial pulses are 2+ on the right side, and 2+ on the left side. Dorsalis pedis pulses are 2+ on the right side, and 2+ on the left side. Pulmonary/Chest: Clear to auscultation Bilateral, effort normal with no retractions. Abdominal: Soft. Normal appearing. Normal bowel sounds. Non-tender. Musculoskeletal: Normal range of motion. Neurological: alert and oriented to person, place, and time. normal strength. Nocranial nerve deficit or sensory deficit. GCS eye subscore is 4. GCS verbal subscore is 5. GCS motor subscore is 6. Skin: Skin is warm, dry and intact. Interpretation Diagnostics Lab Results InterpretationResultsMicrobiology: Date/Time Procedure - Status Source Growth 10/17 1818 Group A Streptococcus Screen (SHERRY) - CAN THROAT Cancelled: NOT RECEIVED IN LAB; PATIENT DISCHARGED. 10/17 1818 Influenza Virus Type B Antigen - CAN NASOPHARG Cancelled: NOT RECEIVED IN LAB; PATIENT DISCHARGED. 10/17 1818 Influenza Virus Type A Antigen - CAN NASOPHARG Cancelled: NOT RECEIVED IN LAB; PATIENT DISCHARGED. Recent Impressions:RADIOLOGY - XR CHEST 1 V 10/17 1830 Report Impression - Status: SIGNED Entered: 10/17/20211848 Impression: 1. No radiographic evidence of acute cardiopulmonary disease. Impression By: Juliano Romero MD Re-Evaluation [facility] ED CourseMedication(s) OrderedMedication(s) Ordered:Central Nervous System Agents Sig/Farhan Start time Last Medication Dose Route Stop Time Status Admin Acetaminophen 1,000 MG X1ED STA 10/17 1823 DC 10/17 PO 10/17 1824 1859 Patient Discharge Departure Vital Signs/ConditionVital SignsFirst Documented: Result Date Time B/P 120/74 10/17 1813 B/P Mean 89 10/17 1813 Temp 100.9 10/17 1813 Pulse 113 10/17 1813 Last Documented: Result Date Time B/P 120/74 10/17 1813 B/P Mean 89 / 1813 Temp 100.9 10/17 181 Pulse 113 10/17 181 All vital signs available at the time of this entry have been reviewed. Condition Stable, Improved Clinical ImpressionClinical ImpressionPrimary Impression: Influenza Disposition DecisionDischarge )( Discharged to Home Yes )( Time 1900 )( Date 10/17/21 COVID-19 Discharge PlanCD Criteria Met for Testing YesTest Performed Yes, result negative Discharge/Care PlanCounseled Regarding Diagnosis, Lab results, Imaging studies, Prescriptions, Needfor follow-up, When to return to EDRx Drug Database Reviewed YesPrescriptionsTamiflu, acetaminophen, ibuprofen(Auto) PrescriptionsCurrent Visit ScriptsACETAMINOPHEN (TYLENOL) 500 MG PO Q6H PRN PRN fever ACETAMINOPHEN (TYLENOL) 500 MG PO Q6H PRN PRN fever #20 TABS Follow label instructions for pain or fever. IBUPROFEN (ADVIL) 400 MG PO Q6H 5 Days #20 TABS Take as directed on label. OSELTAMIVIR (TAMIFLU) 75 MG PO BID OSELTAMIVIR (TAMIFLU) 75 MG PO BID #10 CAPS TAKE FOR 5 DAYS. Prescriptions Reviewed Risks, Benefits, Alternative treatmentPatient Instructions ED Influenza (Adult)Additional InstructionsPlease take the medication as prescribed. Please follow-up with primary care physician in 3 to 5 days. If not better or getting worse please return to the emergency department or [id number] ADDITIONAL INSTRUCTIONS: The examination and treatment that you received today was on an emergency basis only and is not intended as an effort to provide complete medical care. It is impossible to recognize and treat all elements of an illness or injury in a single ED visit. Keep in mind that all x-rays, CTs, MRIs, and ultrasounds read after hours may beover-read the following day by the staff radiologist. Do not drive after taking narcotics, sedatives, or other medications that may cause sedation. Thank you for allowing us to provide emergent medical care to you or your familymember. We consider it a privilege to have served you during your illness or injury. If you have no insurance and live in [place], you may qualify for [facility] Care. Call to sign up and/or call for a list of requirements.For scheduling stephanie;[employer] call . If you live in [place] and do not qualify for [facility], contact:Isabell Cedillo [facility] [address], [phone] If you live in [facility] and have no insurance, you may be able to be seen at the [facility] health department located at [address] [place] [address]. Call to see if you qualify and/or to schedule an appointment. [facility]: [address], [address] Dental Mobile Unit[place] [address], [address] [address] [phone]-NovxpRawlins [facility]: [address] [place], [place]: [address] [place], [place]: [address], [address] [place] Referrals PRIMARY CARE: 2-3 Days Departure FormsABNORMAL LABSAdvance Care Planning Documents Reviewed With patient Discharge NoteI have spoken with the patient and/or caregivers. I have explained the patient'scondition, diagnoses and treatment plan based on the information available to meat this time. I have answered the patient's and/or caregiver's questions and addressed any concerns. The patient and/or caregivers have as good an understanding of the patient's diagnosis, condition and treatment plan as can beexpected at this point. The vital signs have been stable. The patient's condition is stable and appropriate for discharge from the emergency department. The patient will pursue further outpatient evaluation with the primary care physician or other designated or consulting physician as outlined in the discharge instructions. The patient and/or caregivers are agreeable to this planof care and follow-up instructions have been explained in detail. The patient and/or caregivers have received these instructions in written format and have expressed an understanding of the discharge instructions. The patient and/or caregivers are aware that any significant change in condition or worsening of symptoms should prompt an immediate return to this or the closest emergency department or a call to 911. Quality MeasuresBP F/U for HTN F/u with PCP/other doc at 1600RPT #:[id number] OF REPORTEDProvidence St. [facility] department [id number]:21:00D.[id number] ilable for patient [id number]:01:04 [facility] 2020-12-19 01:52:00 [id number] 2:00 [facility] PROVIDER REPORTREPORT#:[id number] REPORT STATUS: SignedDATE:12/19/20 TIME: 0152 PATIENT: BRIANNA STRICKLAND UNIT #: [id number]#: [id number] ROOM/BED:AGE: 34 SEX: M PCP PHYS: No Primary or Family PhysicianSERVICE AUTHOR: Trey Ortiz MD * ALL edits or amendments must be made on the electronic/computer document * HPI-Dental/Mouth Prob GeneralConfirmed Patient YesPatient Type New patientInitial Greet Date/Time 12/19/20 0141 PresentationChief Complaint Tooth chipped, Tooth painHx Obtained From PatientOnset Occurred Hours ago (3) ContextSimilar Sx Previous Yes Free Text HPI NotesFree Text HPI NotesPatient not placed into room until 1:40 AM. I saw patient immediately upon being placed in room. Patient is a morbidly obese 34-year-old male with no reported significant past medical history presenting to the emergency department with chief complaint of toothache for the last 3 hours. Patient states that his right rear molar began hurting approximately 3 hours ago. Notes that he chipped the tooth a "long timeago" but it did not bother him until today. Notes history of poor dental hygiene and had a tooth pulled on the left lower side on Wednesday. Patient statesat that time they gave him Tylenol threes but he ran out and took his last one this evening. Patient endorses taking 4 Tylenol PMs approximately 3 hours ago for the pain with no significant relief. States his pain is currently 10 out of10 in severity. Patient denies any trauma to the head or neck, fever/chills, neck pain/stiffness, rash, ear pain or discharge. Review of Systems ROS StatementsAll systems rev neg except as marked. Free Text ROS NotesFree Text ROS NotesConstitutional: Negative for fever, chills.HEENT: Negative for ear pain, sore throat. Positive for tooth pain.Eyes: Negative for pain and visual disturbance.Cardiovascular: Negative for chest pain, edema, palpitations.Respiratory: Negative for cough, chest tightness and shortness of breath.Gastrointestinal: Negative for nausea, vomiting, abdominal pain and diarrhea. Endocrine: Negative for polydipsia and polyuria.Genitourinary: Negative for dysuria, hematuria, and flank pain.Musculoskeletal: Negative for back pain and neck pain.Skin: Negative for pallor, rash and wound.Neurological: Negative for dizziness, seizures, weakness and headaches.Psychiatric/behavioral: Negative for behavioral problems, confusion and agitation. Past Medical History - AdultStated Complaint SEVERE TOOTHACHE AND HEADACHEAllergiesCoded Allergies:No Known Allergies (12/19/20) Review of Nursing Notes Rev avail, and agreePt reports no significant: Past medical historyAlcohol Use Alcohol useDrug Use Denies recreational drugsSmoking status: Smoking status for patients 13 years old or older: Current every day smoker Physical Exam Vital SignsVital SignsFirst Documented: Result Date Time Pulse Ox 98 12/195 B/P 145/95 12/19 134 B/P Mean 111 12/19 134 O2 Delivery Room air 12/19 134 Temp 97.9 12/19 134 Pulse 68 12/19 134 Resp 16 12/19 134 Last Documented: Result Date Time Pulse Ox 98 12/19 224 B/P 142/93 12/19 224 B/P Mean 109 12/19 224 O2 Delivery Room air 12/19 224 Temp 98.1 12/19 224 Pulse 64 12/19 224 Resp 16 12/19 224 Review of Vital Signs Reviewed Focused PEEars/Nose/Throat Ears/Nose/Throat Atraumatic, Airway patent, Mucous membranes moist, Pharynx NL, Nose exam NL, No sinus tenderness, No facial swelling Dental/Gums Decay extensive, Dental caries present, Dentition poor, Tooth fracture. Negative: Dental abscess, Tender to palpation, Gum swelling, Gum tenderness, Gumulcers present. MS Neck Neck Atraumatic, Supple, No meningismus, Full range of motion, No adenopathy,No swelling, Non-tender, No midline vertebral tend Free Text PE NotesFree Text PE NotesConstitutional: Awake, alert, no acute distress, not toxic appearing.Head: Normocephalic and atraumatic.Eyes: Atraumatic, no periorbital redness, no periorbital swelling.Respiratory/chest: Atraumatic, breath sounds normal, breath sounds equal bilaterally, no respiratory distress, no rales, no rhonchi, no wheezing.Cardiovascular: Heart rate normal, regular rhythm, heart sounds normal, cap refill not delayed.Abdomen/GI: Atraumatic, soft, nontender, bowel sounds normoactive, no distention.Back: Atraumatic, inspection normal, nontender, no midline vertebral tenderness,no CVA tendernessSkin: Atraumatic, color normal, warm, dry, intact.Neurologic: Oriented x3, speech normal, no motor deficits, cranial nerves II - XII intact. Interpretation Diagnostics Lab Results InterpretationResultsLaboratory Tests: 12/19 147 Toxicology Urine Opiates Screen (NEGATIVE) POSITIVE H Ur Barbiturates Screen (NEGATIVE) NEGATIVE Ur Phencyclidine Scrn (NEGATIVE) NEGATIVE Ur Amphetamine Screen (NEGATIVE) NEGATIVE MDMA (NEGATIVE) NEGATIVE U Benzodiazepines Scrn (NEGATIVE) NEGATIVE Urine Cocaine Screen (NEGATIVE) NEGATIVE U Cannabinoids Screen (NEGATIVE) NEGATIVE Lab StatementLaboratory studies reviewed and considered in the medical decision-making. Point of Care TestingPulse Oximetry Pulse Ox % 98 On: Room air Interpretation Interpreted by me, Pulse oximetry normal Time 0135 Re-Evaluation MDM ED CourseMedication(s) OrderedMedication(s) Ordered:Anti-Infective Agents Sig/Farhan Start time Last Medication Dose Route Stop Time Status Admin Penicillin V 500 MG X1ED STA 12/19 0148 DC 12/19 Potassium PO 12/19 014 0155 Central Nervous System Agents Sig/Farhan Start time Last Medication Dose Route Stop Time Status Admin Naproxen 500 MG X1ED STA 12/19 0152 DC 12/19 PO 12/19 0153 0156 Differential DiagnosisDifferential Diagnosis Abscess dental, Acute nec ulcer gingivit, Periapical abscess, Periodontal abscess, Periodontitis, Pulpitis, Tooth fracture Patient Discharge Departure Vital Signs/ConditionVital SignsFirst Documented: Result Date Time Pulse Ox 98 12/19 0135 B/P 145/95 12/19 0135 B/P Mean 111 12/19 0135 O2 Delivery Room air 12/19 134 Temp 97.9 12/19 134 Pulse 68 12/19 0135 Resp 16 12/19 013 Last Documented: Result Date Time Pulse Ox 98 12/19 0225 B/P 142/93 12/19 0225 B/P Mean 109 12/19 022 O2 Delivery Room air 12/19 224 Temp 98.1 12/19 224 Pulse 64 12/19 0225 Resp 16 12/19 022 All vital signs available at the time of this entry have been reviewed. Condition Stable Clinical ImpressionClinical ImpressionPrimary Impression: Dental cavitySecondary Impressions: Chipped tooth Disposition DecisionDischarge )( Discharged to Home Yes )( Time 0203 )( Date 12/19/20 Discharge/Care PlanCounseled Regarding Diagnosis, Lab results, Prescriptions, Need for follow-up (dentist), When to return to ED, Smoking cessation(Auto) PrescriptionsCurrent Visit ScriptsPENICILLIN V-K (PEN V-K) 500 MG PO Q6H 7 Days #28 TABS NAPROXEN (NAPROSYN) 500 MG PO BID PRN PRN PAIN NAPROXEN (NAPROSYN) 500 MG PO BID PRN PRN PAIN #15 TABS Prescriptions Reviewed Risks, Benefits, Alternative treatmentPatient Instructions ED Dental Cavity, ED Dental Pain, ED How to Quit Smoking, ED Hypertension, To Be Confirmed, How to Find the Right DentistAdditional InstructionsPlease return to the emergency department IMMEDIATELY if your symptoms worsen, persist, and/or a fever develops.Please follow-up with a dentist as soon as possible.[facility]: Immediately Discharge NoteI have spoken with the patient and/or caregivers. I have explained the patient'scondition, diagnoses and treatment plan based on the information available to meat this time. I have answered the patient's and/or caregiver's questions and addressed any concerns. The patient and/or caregivers have as good an understanding of the patient's diagnosis, condition and treatment plan as can beexpected at this point. The vital signs have been stable. The patient's condition is stable and appropriate for discharge from the emergency department. The patient will pursue further outpatient evaluation with the primary care physician or other designated or consulting physician as outlined in the discharge instructions. The patient and/or caregivers are agreeable to this planof care and follow-up instructions have been explained in detail. The patient and/or caregivers have received these instructions in written format and have expressed an understanding of the discharge instructions. The patient and/or caregivers are aware that any significant change in condition or worsening of symptoms should prompt an immediate return to this or the closest emergency department or a call to 911. Quality MeasuresBP F/U for HTN F/u with PCP/other docTobacco Screening/Cessation 18 years or older, Tobacco user, Smoking cessation offered, Declined help, Counseled 3-10 minutes Smoking Cessation CounselingThe patient was questioned regarding their smoking habits, and I have determined, as the patient's treating physician, that there is a medical necessity in regards to the patient's medical condition to provide smoking cessation program education. The patient was advised to stop smoking and counseled for a period ofgreater than 3 minutes. The patient was instructed to follow up with a primary care physician for smoking cessation and given information regarding local smoking cessation programs in the area. The patient received detailed discharge instructions as to how to stop smoking. The patient expressed an understanding of the need to follow up and the plan for smoking cessation. at 0625RPT #:[id number] OF REPORTSouth [facility] department [id number]:52:00D.[id number] neable for patient [id number]:26:13 [facility]
[2024-03-14] MEDS ORDERED: LEVALBUTEROL 1.25 MG/3 ML NEB ONE (07:21)
[2024-03-14 07:56] LABS: SARS-CoV-2 Antigen CONTROL BLUE LINE VIS/BG OK; SARS-CoV-2 Antigen Rapid Res Negative (Negative)
--- NOTE | 2024-03-14 08:49 | RAD REPORT ---
EXAM DESCRIPTION: Connie El (2 Views)03/14/2024 8:14 am CLINICAL HISTORY: Cough COMPARISON: None FINDINGS: The lungs appear clear of acute infiltrate. The heart is normal size IMPRESSION: No acute abnormalities displayed
--- NOTE | 2024-03-14 09:03 | ER ---
Nurse's Notes [facility] Name: Sae Rao Age: 38 yrs Sex: Male : 1985 Arrival Date: 03/14/2024 Time: 06:25 Bed 18 Private MD: Diagnosis: Cough;Wheezing Presentation: 03/14 07:00 Chief complaint: Patient states: Cough, body aches, and SOB x4 days. rs5 07:00 Coronavirus screen: At this time, the client does not indicate any symptoms associated rs5 with coronavirus-19. Ebola Screen: No symptoms or risks identified at this time. Initial Sepsis Screen: Does the patient meet any 2 criteria? No. Patient's initial sepsis screen is negative. Does the patient have a suspected source of infection? No. Patient's initial sepsis screen is negative. Risk Assessment: Do you want to hurt yourself or someone else? Patient reports no desire to harm self or others. Onset of symptoms was March 11, 2024. 07:00 Method Of Arrival: Ambulatory rs5 07:00 Acuity: LISA 3 rs5 Historical: - Allergies: 07:00 No Known Allergies; rs5 - PMHx: 07:00 None; rs5 - PSHx: 07:00 None; rs5 - Immunization history:: Adult Immunizations up to date. - Infectious Disease History:: Denies. - Social history:: Smoking status: Patient denies any tobacco usage or history of. - Family history:: not pertinent. - Hospitalizations: : No recent hospitalization is reported. Screenin:00 [facility] ED Fall Risk Assessment (Adult) History of falling in the last 3 months, rs5 including since admission No falls in past 3 months (0 pts) Confusion or Disorientation No (0 pts) Intoxicated or Sedated No (0 pts) Impaired Gait No (0 pts) Mobility Assist Device Used No (0 pt) Altered Elimination No (0 pt) Score/Fall Risk Level 0 - 2 = Low Risk Oriented to surroundings, Maintained a safe environment. Abuse screen: Denies threats or abuse. Nutritional screening: No deficits noted. Tuberculosis screening: No symptoms or risk factors identified. Assessment: 07:00 General: Appears in no apparent distress. uncomfortable, Behavior is calm, cooperative. rs5 Pain: Complains of pain in generalized body aches Pain currently is 3 out of 10 on a pain scale. Quality of pain is described as aching, Is continuous. Neuro: Level of Consciousness is awake, alert, obeys commands, Oriented to person, place, time, situation. Cardiovascular: Patient's skin is warm and dry. Rhythm is regular. Respiratory: Airway is patent Respiratory effort is even, unlabored, Respiratory pattern is regular, symmetrical. GI: Abdomen is round non-distended, Abd is soft and non tender X 4 quads. : No signs and/or symptoms were reported regarding the genitourinary system. EENT: No signs and/or symptoms were reported regarding the EENT system. Derm: Skin is intact, Skin is pink, warm \T\ dry. Musculoskeletal: Range of motion: intact in all extremities. 07:00 Respiratory: Reports shortness of breath on exertion cough that is. rs5 08:12 Reassessment: Patient and/or family updated on plan of care and expected duration. Pain rs5 level reassessed. Patient is alert, oriented x 3, equal unlabored respirations, skin warm/dry/pink. Patient states feeling better. Patient states symptoms have improved. 09:18 Reassessment: No changes from previously documented assessment. rs5 Vital Signs: 07:00 BP 126 / 70; Pulse 70; Resp 18; Temp 98; Pulse Ox 99% on R/A; rs5 08:25 BP 122 / 73; Pulse 73; Resp 18; Pulse Ox 99% on R/A; rs5 09:19 BP 125 / 73; Pulse 75; Resp 18; Pulse Ox 99% on R/A; rs5 ED Course: 06:35 Patient arrived in ED. [id number] 07:00 Dandre Gutierrez MD is Attending Physician. rn 07:00 Patient has correct armband on for positive identification. Placed in gown. Bed in low rs5 position. Call light in reach. Side rails up X2. 07:00 No provider procedures requiring assistance completed. rs5 07:02 Andrea Lovelace, LUIS is Primary Nurse. rs5 07:14 Triage completed. rs5 08:16 XRAY Chest Pa And Lat (2 Views) In Process Unspecified. EDMS 09:18 IV discontinued, intact, bleeding controlled, No redness/swelling at site. Pressure rs5 dressing applied. Administered Medications: 07:10 Drug: Levalbuterol Inhalation 1.25 mg Inhalation once Route: Inhalation; rs5 07:22 Follow up: Response: No adverse reaction rs5 Medication: 07:16 VIS not applicable for this client. rs5 Outcome: 09:02 Discharge ordered by . rn 09:18 Discharged to home ambulatory, rs5 09:18 Condition: stable 09:18 Discharge instructions given to patient, family, Instructed on discharge instructions, follow up and referral plans. medication usage, Demonstrated understanding of instructions, follow-up care, medications, Prescriptions given X 2, 09:20 Patient left the ED. rs5 Signatures: Dispatcher [employer] EDMS Dandre Gutierrez MD MD rn Jeffries, Jennifer jj6 Sotelo, Ricky, RN RN rs5
--- NOTE | 2024-03-14 09:03 | EDPHYS ---
Physician Documentation [facility] Name: Sae Rao Age: 38 yrs Sex: Male : 1985 Arrival Date: 03/14/2024 Time: 06:25 Bed 18 Private MD: ED Physician Dandre Gutierrez HPI: 03/14 07:39 This 38 yrs old Male presents to ER via Ambulatory with complaints of Cough. rn 07:39 The patient or guardian reports cough. rn 07:39 Onset: The symptoms/episode began/occurred 4 day(s) ago. Severity of symptoms: At their rn worst the symptoms were moderate, in the emergency department the symptoms are unchanged. Modifying factors: The symptoms are alleviated by nothing, the symptoms are aggravated by nothing. Associated signs and symptoms: Pertinent positives: fever, rhinorrhea, sore throat, Pertinent negatives: chest pain. The patient has not experienced similar symptoms in the past. Patient reports 4 days of cough, subjective fever, runny nose and sore throat. Also associated with myalgias and fatigue. Denies history of asthma or pulmonary problems. Denies smoking history. No trauma. No chest pain.. Historical: - Allergies: 07:00 No Known Allergies; rs5 - PMHx: 07:00 None; rs5 - PSHx: 07:00 None; rs5 - Immunization history:: Adult Immunizations up to date. - Infectious Disease History:: Denies. - Social history:: Smoking status: Patient denies any tobacco usage or history of. - Family history:: not pertinent. - Hospitalizations: : No recent hospitalization is reported. ROS: 07:41 Constitutional: Positive for subjective fever ENT: Positive for runny nose and sore rn throat Neck: Negative for injury, pain, and swelling, Cardiovascular: Negative for chest pain, palpitations, and edema, Respiratory: Positive for cough and shortness of breath Abdomen/GI: Negative for abdominal pain, nausea, vomiting, diarrhea, and constipation, MS/Extremity: Negative for injury and deformity, Skin: Negative for injury, rash, and discoloration, Neuro: Positive for generalized weakness Exam: 07:41 Constitutional: This is a well developed, well nourished patient who is awake, alert, rn and in no acute distress. Head/Face: Normocephalic, atraumatic. ENT: No stridor Cardiovascular: Regular rate and rhythm. No pulse deficits. Respiratory: No increased work of breathing or retractions but positive for wheezing bilateral expiratory phase. MS/ Extremity: Pulses equal, no cyanosis Neuro: Awake and alert, GCS 15 Vital Signs: 07:00 BP 126 / 70; Pulse 70; Resp 18; Temp 98; Pulse Ox 99% on R/A; rs5 08:25 BP 122 / 73; Pulse 73; Resp 18; Pulse Ox 99% on R/A; rs5 09:19 BP 125 / 73; Pulse 75; Resp 18; Pulse Ox 99% on R/A; rs5 MDM: 07:00 Patient medically screened. rn 09:02 Differential Diagnosis: Bronchitis Influenza Upper Respiratory Infection Pharyngitis rn Viral Syndrome Pneumonia. Data reviewed: vital signs, nurses notes, lab test result(s), radiologic studies, plain films, and as a result, I will discharge patient. Counseling: I had a detailed discussion with the patient and/or guardian regarding the historical points, exam findings, and any diagnostic results supporting the discharge/admit diagnosis, lab results, radiology results, the need for outpatient follow up, to return to the emergency department if symptoms worsen or persist or if there are any questions or concerns that arise at home. Special discussion: I discussed with the patient/guardian in detail that at this point there is no indication for admission to the hospital. It is understood, however, that if the symptoms persist or worsen the patient needs to return immediately for re-evaluation. 03/14 07:05 Order name: Strep rn 03/14 07:05 Order name: Flu; Complete Time: 08:53 rn 03/14 07:05 Order name: SARS RAPID; Complete Time: 08:53 rn 03/14 07:59 Order name: Throat Culture EDMS 03/14 07:05 Order name: XRAY Chest Pa And Lat (2 Views); Complete Time: 08:53 rn Administered Medications: 07:10 Drug: Levalbuterol Inhalation 1.25 mg Inhalation once Route: Inhalation; rs5 07:22 Follow up: Response: No adverse reaction rs5 Disposition Summary: 03/14/24 09:02 Discharge Ordered Notes: Location: Home rn Problem: new rn Symptoms: have improved rn Condition: Stable rn Diagnosis - Cough rn - Wheezing rn Followup: rn - With: Private Physician - When: As needed - Reason: Recheck today's complaints, Re-evaluation by your physician Discharge Instructions: - Discharge Summary Sheet rn - Cough, Adult rn Forms: - Medication Reconciliation Form rn - 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 Day 2, 3, 4 , 5 take one (1) tablet once daily.; 6 tablet; Refills: 0, Product Selection Permitted Signatures: Dispatcher [employer] Dandre Lao MD MD rn Sotelo, Ricky, RN RN rs5 Corrections: (The following items were deleted from the chart) 07:42 07:41 Constitutional: Negative for fever, chills, and weight loss, rn rn
[2024-03-14 09:49] VITALS: BP 125/73; TEMP 98; O2SAT 99
== END 2024-03-14 09:20 | disposition home or self-care (01) ==
LOC: ER 06:25
DX: R05.9 Cough, unspecified (principal); R06.2 Wheezing; Z11.52 Encounter for screening for COVID-19
CPT/HCPCS: 36415; 71046; 87070; 87081; 87804; 87811; 99284; J7614